=== PATIENT | female | born 1975 | race Caucasian/White ===

== ENCOUNTER → 2016-09-13 | Outpatient (CLI) | payer OTHER, MEDICAID ==
[2016-04-17 11:35] VITALS: BP 129/96
--- NOTE | 2016-09-13 12:30 | RAD ---
HISTORY: Acute abdominal pain Study: Acute abdominal series, lateral chest Comparison: October 30, 2014 Findings: The trachea is midline. The cardiac silhouette is unremarkable. The lungs are clear without focal infiltrate or effusion. The bony thorax is unremarkable. Flat plate and upright evaluation of the abdomen demonstrates a normal bowel gas pattern. No pneumop eritoneum is identified. There is a large amount of stool throughout the colon.. No pathological so ft tissue mass or calcification can be observed. The bony structures are grossly intact. IMPRESSION: 1. No acute cardiopulmonary disease. 2. No evidence for acute abdominal pathology identified. 3. Constipation Reported By:
== END ==
LOC: RAD 11:42
PROVIDERS: ATTEND Nurse Practitioner Family
DX: R10.84 Generalized abdominal pain (principal); R06.02 Shortness of breath; K59.09 Other constipation
CPT/HCPCS: 74022

== ENCOUNTER → 2016-09-16 | Outpatient (CLI) | payer OTHER, MEDICAID ==
[2016-04-17 11:35] VITALS: BP 129/96
[2016-09-16 09:34] LABS: ALANINE AMINOTRANSFERASE 34 Units/L (12-78); ALBUMIN 3.4 g/dL (3.4-5.0); ALKALINE PHOSPHATASE 84 Units/L (46-116); ASPARTATE AMINO TRANSFERASE 33 Units/L (15-37); BLOOD UREA NITROGEN 14 mg/dL (7-18); CALCIUM 8.7 mg/dL (8.5-10.1); CARBON DIOXIDE 29.4 mmol/L (21-32); CHLORIDE 106 mmol/L (98-107); CHOL/HDL RATIO 3.3 (0.0-5.0); CHOLESTEROL 203 mg/dL (0-200); CREATININE 0.98 mg/dL (0.55-1.02); GLUCOSE 86 mg/dL (65-99); HDL CHOLESTEROL 62 mg/dL (40-60); SODIUM 142 mmol/L (136-145); TOTAL PROTEIN 6.8 g/dL (6.4-8.2); TRIGLYCERIDES 53 mg/dL (0-150); eGFR BLACK RACES > 60 (>60); eGFR NON BLACK RACES > 60 (>60)
[2016-09-16 09:50] LABS: BASOPHILS # (AUTO) 0.1 X10^3/uL (0.0-0.1); BASOPHILS % (AUTO) 2.3 % (0.2-1.0); EOSINOPHILS # (AUTO) 0.3 x10^3/uL (0.0-0.2); EOSINOPHILS % (AUTO) 8.5 % (0.9-2.9); HEMATOCRIT 38.3 % (36.0-47.0); HEMOGLOBIN 12.6 g/dL (12.0-16.0); LYMPHOCYTES # (AUTO) 1.4 X10^3/uL (1.3-2.9); LYMPHOCYTES % (AUTO) 47.4 % (21.0-51.0); MEAN CORPUSCULAR VOLUME 90.9 fL (80.0-100.0); MEAN PLATELET VOLUME 8.8 fL (7.4-11.0); MONOCYTES # (AUTO) 0.2 x10^3/uL (0.3-0.8); MONOCYTES % (AUTO) 7.9 % (0.0-13.0); NEUTROPHILS % (AUTO) 33.9 % (42.0-75.0); PLATELET COUNT 148 X10^3/uL (150.0-450.0); RED BLOOD COUNT 4.21 X10^6/uL (3.5-5.4); RED CELL DISTRIBUTION WIDTH 12.9 % (11.6-16.5)
== END ==
LOC: LAB 08:56
PROVIDERS: ATTEND Nurse Practitioner Family
DX: G40.909 Epilepsy, unspecified, not intractable, without status epilepticus (principal); Z91.89 Other specified personal risk factors, not elsewhere classified; R23.2 Flushing; E53.8 Deficiency of other specified B group vitamins; I10 Essential (primary) hypertension
CPT/HCPCS: 36415; 80053; 80061; 82671; 82746; 84144; 85025

== ENCOUNTER 2016-10-06 13:46 | Observation (INO) | payer OTHER, MEDICAID ==
[2016-10-06] MEDS ORDERED: ATIVAN INJ 2 MG VIAL ONE ×2 (13:55→14:47)
[2016-10-06] MEDS ORDERED: ATIVAN INJ 2 MG VIAL IVP ONE ×2 (13:56→15:58)
[2016-10-06] MEDS ORDERED: NS 1000 ML 1,000 ML ONE (13:58)
--- NOTE | 2016-10-06 14:03 | DR.SEIZA ---
HPI - Time Seen Time seen: 13:50 - Complaints Chief Complaint Doctors Comments: EMS was called to the residence of patient who was having a seizure according to caller. Patient with a history of seizure last seizure was hospitalized here for two weeks then transferred to [place]. She reports that she has done well. She is taking vimpat bid for seizure controll. Her sister states that she has done well since [place] but it seams that when she has thoughts of her child she become aggitated and seizures become more frequent. PMH - PMH Past Medical History: Anxiety, Asthma, Depression, Seizures Past Surgical History: Yes Surgical History: Appendectomy, 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, Ectopic , Hysterectomy , Tonsillectomy, Other - Family History Family Medical History: Diabetes Mellitus, Cancer, Heart Failure, Hypertension - Social History Do you use any recreational Drugs:: No ROS - Review of Systems Constitutional: No Symptoms Reported Eyes: No Symptoms Reported ENTM: No Symptoms Reported Respiratoy: No Symptoms Reported Cardiovascular: No Symptoms Reported Gastrointestinal/Abdominal: No Symptoms Reported Genitourinary: No Symptoms Reported Neurological: Seizure Musculoskeletal: No Symptoms Reported Integumentary: No Symptoms Reported Hematologic/Lymphatic: No Symptoms Reported Endocrine: No Symptoms Reported Psychiatric: No Symptoms Reported All Other Systems: Reviewed and Negative PE - Vital Signs Vitals: Temperature 98.9 F Pulse Rate [Right Radial] 105 Pulse Rate 103 Respiratory Rate 20 Blood Pressure [Left Arm] 118/67 Blood Pressure [Right Arm] 134/90 Blood Pressure 129/75 O2 Sat by Pulse Oximetry 98 - General Limitations: No Limitations General Appearance: Alert, In No Apparent Distress - Head Head Exam: Normal Inspection, Atraumatic - Eyes Eye exam: Normal Appearance, PERRL, EOMI Eyelids: Normal Inspection: Bilateral Pupils: Regular, Round: Bilateral Sclera/Conjunctival: Normal Inspection: Bilateral Anterior Chamber: Normal Inspection: Bilateral - ENT ENT Exam: Normal Exam Mouth Exam: Normal Inspection, Drooling - Neck Neck Exam: Normal Inspection, Full ROM - Respiratory Respiratory Exam: Normal Lung Sounds Bilat Respiratory Exam: Bilateral Clear to Auscultation - Cardiovascular Cardiovascular Exam: Regular Rate, Normal Rhythm - Abdominal Exam Abdominal Exam: Normal Inspection Abdominal Tenderness: negative: RUQ, RLQ, LUQ, LLQ, Epigastrium, Suprapubic, Diffuse, Mild, Moderate, Severe, Other - Extremities Extremities Exam: Normal Inspection, Full ROM - Back Back Exam: Normal Inspection, Full ROM - Neurologic Neurological Exam: Alert, Oriented X3, CN II-XII Intact Speech: Fluid Speech Cranial Nerve Exam: EOM Function (II, III, IV, ): Normal, Facial Sensation (V) : Normal, Gag reflex (XI): Normal Motor Strength - LUE: 3/5 Motor Strength - RUE: 3/5 - Psychiatric Psychiatric Exam: Normal Affect, Normal Mood - Skin Skin Exam: Warm, Dry, Intact Course - Treatment Treatment: Had seizure required anticonvulsants IV, lorazepam 6mg, phospheyntoin 1gm - Reevaluation 1st: Improved - Consultation Called: 16:40 (Dr Salgado agreed to admit for further evaluation and treatment) ROR - Labs Reviewed Result Diagrams: 10/06/16 14:05 10/06/16 14:05 Laboratory: WBC 3.2 X10^3/uL (3.6-10.0) L 10/06/16 14:05 RBC 4.14 X10^6/uL (3.5-5.4) 10/06/16 14:05 Hgb 12.9 g/dL (12.0-16.0) 10/06/16 14:05 Hct 37.3 % (36.0-47.0) 10/06/16 14:05 MCV 90.1 fL (80.0-100.0) 10/06/16 14:05 MCH 31.1 pg (27.0-34.0) 10/06/16 14:05 MCHC 34.5 g/dL (33.0-35.0) 10/06/16 14:05 RDW 13.1 % (11.6-16.5) 10/06/16 14:05 Plt Count 155 X10^3/uL (150.0-450.0) 10/06/16 14:05 MPV 8.9 fL (7.4-11.0) 10/06/16 14:05 Neut % 55.8 % (42.0-75.0) 10/06/16 14:05 Lymph % 29.9 % (21.0-51.0) 10/06/16 14:05 Simpson % 7.4 % (0.0-13.0) 10/06/16 14:05 Eos % 5.0 % (0.9-2.9) H 10/06/16 14:05 Baso % 1.9 % (0.2-1.0) H 10/06/16 14:05 Neut # 1.8 x10^3/uL (2.2-4.8) L 10/06/16 14:05 Lymph # 0.9 X10^3/uL (1.3-2.9) L 10/06/16 14:05 Simpson # 0.2 x10^3/uL (0.3-0.8) L 10/06/16 14:05 Eos # 0.2 x10^3/uL (0.0-0.2) 10/06/16 14:05 Baso # 0.1 X10^3/uL (0.0-0.1) 10/06/16 14:05 Absolute Nucleated RBC 0.1 /100WBC 10/06/16 14:05 Sodium 140 mmol/L (136-145) 10/06/16 14:05 Corrected Sodium 141 mmol/L (136-145) 10/06/16 14:05 Potassium 3.6 mmol/L (3.5-5.1) 10/06/16 14:05 Chloride 104 mmol/L (98-107) 10/06/16 14:05 Carbon Dioxide 26.1 mmol/L (21-32) 10/06/16 14:05 BUN 9 mg/dL (7-18) 10/06/16 14:05 Creatinine 0.92 mg/dL (0.55-1.02) 10/06/16 14:05 Est GFR (MDRD) Af Amer > 60 (>60) 10/06/16 14:05 Est GFR (MDRD) Non-Af > 60 (>60) 10/06/16 14:05 Glucose 145 mg/dL (65-99) H 10/06/16 14:05 Calcium 8.7 mg/dL (8.5-10.1) 10/06/16 14:05 Corrected Calcium TNP 10/06/16 14:05 Total Bilirubin 0.40 mg/dL (0.2-1.0) 10/06/16 14:05 AST 19 Units/L (15-37) 10/06/16 14:05 ALT 23 Units/L (12-78) 10/06/16 14:05 Alkaline Phosphatase 81 Units/L (46-116) 10/06/16 14:05 Creatine Kinase 60 Units/L (26-192) 10/06/16 14:39 CK-MB (CK-2) < 1.0 ng/mL (0-4.0) 10/06/16 14:39 CK/CKMB % Calc 1.7 % (<4) 10/06/16 14:39 Troponin I < 0.02 ng/mL (0-1.5) 10/06/16 14:39 Total Protein 6.9 g/dL (6.4-8.2) 10/06/16 14:05 Albumin 3.5 g/dL (3.4-5.0) 10/06/16 14:05 Globulin 3.4 g/dL (2.5-4.5) 10/06/16 14:05 Albumin/Globulin Ratio 1.0 Ratio (1.1-2.1) L 10/06/16 14:05 Specimen Type Clean catch urine 10/06/16 14:49 Urine Color Yellow (YELLOW) 10/06/16 14:49 Urine Appearance Clear (CLEAR) 10/06/16 14:49 Urine pH 6.0 (5.0 - 8.0) 10/06/16 14:49 Ur Specific [place] 1.005 (1.000-1.030) 10/06/16 14:49 Urine Protein Negative (NEGATIVE) 10/06/16 14:49 Urine Glucose (UA) Negative (NEGATIVE) 10/06/16 14:49 Urine Ketones Negative (NEGATIVE) 10/06/16 14:49 Urine Occult Blood Negative (NEGATIVE) 10/06/16 14:49 Urine Nitrite Negative (NEGATIVE) 10/06/16 14:49 Urine Bilirubin Negative (NEGATIVE) 10/06/16 14:49 Urine Urobilinogen Normal (NORMAL) 10/06/16 14:49 Ur Leukocyte Esterase Negative (NEGATIVE) 10/06/16 14:49 Urine RBC Rare /HPF (NEGATIVE) 10/06/16 14:49 Urine WBC None seen /HPF (NEGATIVE) 10/06/16 14:49 Ur Squamous Epith Cells Few /HPF (NEGATIVE) 10/06/16 14:49 Urine Bacteria Negative /HPF (NEGATIVE) 10/06/16 14:49 Urine Mucus Moderate /HPF (NEGATIVE) 10/06/16 14:49 Ur Culture Indicated? No/not indicated 10/06/16 14:49 - XRAY XRAY Interpreted by: Radiologist (Chest: No acute cardiopulmonary disease) Procedures - Procedure Comments Procedures: Anticonvulsants - Diagnosis Discharge Problem: Seizure disorder - Discharge Plan Condition: Stable - Follow ups/Referrals Follow ups/Referrals: AMBROCIO LAMBERT [Primary Care Provider] - 3 days - Instructions
[2016-10-06] MEDS: NS 1000 ML 1,000 ML IV SCH ×2 (14:06→21:31)
--- NOTE | 2016-10-06 14:18 | RAD ---
HISTORY: 41-year-old female status post seizure. Study: Single frontal view of the chest. Comparison: Chest radiographs September 13, 2016. Findings: The trachea is midline. The cardiac silhouette is unremarkable. No focal consolidation, effusion o r pneumothorax. The bony thorax is unremarkable. IMPRESSION: 1. No acute cardiopulmonary disease. Reported By:
[2016-10-06 14:20] LABS: BASOPHILS # (AUTO) 0.1 X10^3/uL (0.0-0.1); BASOPHILS % (AUTO) 1.9 % (0.2-1.0); EOSINOPHILS # (AUTO) 0.2 x10^3/uL (0.0-0.2); HEMATOCRIT 37.3 % (36.0-47.0); HEMOGLOBIN 12.9 g/dL (12.0-16.0); LYMPHOCYTES # (AUTO) 0.9 X10^3/uL (1.3-2.9); LYMPHOCYTES % (AUTO) 29.9 % (21.0-51.0); MEAN CORPUSCULAR HEMOGLOBIN 31.1 pg (27.0-34.0); MEAN CORPUSCULAR HGB CONC 34.5 g/dL (33.0-35.0); MEAN CORPUSCULAR VOLUME 90.1 fL (80.0-100.0); MEAN PLATELET VOLUME 8.9 fL (7.4-11.0); MONOCYTES # (AUTO) 0.2 x10^3/uL (0.3-0.8); MONOCYTES % (AUTO) 7.4 % (0.0-13.0); NEUTROPHILS # (AUTO) 1.8 x10^3/uL (2.2-4.8); NEUTROPHILS % (AUTO) 55.8 % (42.0-75.0); PLATELET COUNT 155 X10^3/uL (150.0-450.0); RED BLOOD COUNT 4.14 X10^6/uL (3.5-5.4); RED CELL DISTRIBUTION WIDTH 13.1 % (11.6-16.5); WHITE BLOOD COUNT 3.2 X10^3/uL (3.6-10.0)
[2016-10-06 14:26] LABS: ALANINE AMINOTRANSFERASE 23 Units/L (12-78); ALBUMIN 3.5 g/dL (3.4-5.0); ALKALINE PHOSPHATASE 81 Units/L (46-116); ASPARTATE AMINO TRANSFERASE 19 Units/L (15-37); BLOOD UREA NITROGEN 9 mg/dL (7-18); CALCIUM 8.7 mg/dL (8.5-10.1); CARBON DIOXIDE 26.1 mmol/L (21-32); CHLORIDE 104 mmol/L (98-107); COR NA(FOR HYPERGLY) 141 mmol/L (136-145); CREATININE 0.92 mg/dL (0.55-1.02); GLUCOSE 145 mg/dL (65-99); SODIUM 140 mmol/L (136-145); TOTAL PROTEIN 6.9 g/dL (6.4-8.2); eGFR BLACK RACES > 60 (>60); eGFR NON BLACK RACES > 60 (>60)
[2016-10-06] MEDS ORDERED: ATIVAN INJ 2 MG VIAL IVP STA (14:30)
[2016-10-06] MEDS ORDERED: DILANTIN INJ 100 MG VIAL IVP ONE (14:31)
[2016-10-06 14:58] LABS: BILIRUBIN,URINE NEGATIVE (NEGATIVE); BLOOD/HEMOGLOBIN,URINE NEGATIVE (NEGATIVE); GLUCOSE, URINE NEGATIVE (NEGATIVE); KETONES,URINE NEGATIVE (NEGATIVE); LEUKOCYTE ESTERASE ,URINE NEGATIVE (NEGATIVE); NITRITES,URINE NEGATIVE (NEGATIVE); PROTEIN,URINE NEGATIVE (NEGATIVE); UROBILINOGEN,URINE NORMAL (NORMAL)
[2016-10-06 15:02] LABS: APPEARANCE,URINE CLEAR (CLEAR); COLOR,URINE YELLOW (YELLOW)
[2016-10-06 15:07] LABS: CKMB % 1.7 % (<4); CREATINE KINASE 60 Units/L (26-192); CREATINE KINASE MB < 1.0 ng/mL (0-4.0); TROPONIN I < 0.02 ng/mL (0-1.5)
[2016-10-06 15:17] LABS: RBC,URINE RARE /HPF (NEGATIVE); SQUAMOUS EPITHELIAL CELL,UR FEW /HPF (NEGATIVE)
[2016-10-06 15:18] LABS: BACTERIA,URINE NEGATIVE /HPF (NEGATIVE); MUCUS,URINE MODERATE /HPF (NEGATIVE)
[2016-10-06] MEDS ORDERED: PHENERGAN INJ 25 MG IV ONE (17:16)
[2016-10-06] MEDS ORDERED: NS 1000 ML 1,000 ML IV SCH (18:00)
[2016-10-06] MEDS ORDERED: XANAX PO SCH (21:00)
[2016-10-06] MEDS ORDERED: LACOSAMIDE 150 MG PO SCH (21:00)
[2016-10-06] MEDS: PEPCID TAB 20 MG PO SCH (21:32)
[2016-10-06 22:01] VITALS: BMI 28.4
[2016-10-07 05:24] LABS: BASOPHILS # (AUTO) 0.1 X10^3/uL (0.0-0.1); EOSINOPHILS # (AUTO) 0.2 x10^3/uL (0.0-0.2); EOSINOPHILS % (AUTO) 5.7 % (0.9-2.9); HEMATOCRIT 34.5 % (36.0-47.0); HEMOGLOBIN 11.8 g/dL (12.0-16.0); LYMPHOCYTES # (AUTO) 1.7 X10^3/uL (1.3-2.9); LYMPHOCYTES % (AUTO) 48.6 % (21.0-51.0); MEAN CORPUSCULAR HGB CONC 34.1 g/dL (33.0-35.0); MEAN CORPUSCULAR VOLUME 90.9 fL (80.0-100.0); MEAN PLATELET VOLUME 9.6 fL (7.4-11.0); MONOCYTES # (AUTO) 0.4 x10^3/uL (0.3-0.8); MONOCYTES % (AUTO) 10.7 % (0.0-13.0); NEUTROPHILS # (AUTO) 1.2 x10^3/uL (2.2-4.8); PLATELET COUNT 152 X10^3/uL (150.0-450.0); RED CELL DISTRIBUTION WIDTH 13.3 % (11.6-16.5); WHITE BLOOD COUNT 3.6 X10^3/uL (3.6-10.0)
[2016-10-07 05:41] LABS: ALANINE AMINOTRANSFERASE 22 Units/L (12-78); ALKALINE PHOSPHATASE 68 Units/L (46-116); ASPARTATE AMINO TRANSFERASE 17 Units/L (15-37); BLOOD UREA NITROGEN 7 mg/dL (7-18); CALCIUM 8.6 mg/dL (8.5-10.1); CARBON DIOXIDE 27.5 mmol/L (21-32); CHLORIDE 110 mmol/L (98-107); COR CA(FOR HYPOALB) 9.4 mg/dL (8.5-10.1); CREATININE 0.74 mg/dL (0.55-1.02); GLUCOSE 84 mg/dL (65-99); SODIUM 143 mmol/L (136-145); eGFR BLACK RACES > 60 (>60); eGFR NON BLACK RACES > 60 (>60)
[2016-10-07] MEDS: NS 1000 ML 1,000 ML IV SCH (05:47)
[2016-10-07] MEDS: PEPCID TAB 20 MG PO SCH (08:35)
[2016-10-07] MEDS ORDERED: FOLIC ACID TAB 1 MG PO SCH (09:00)
[2016-10-07] MEDS ORDERED: LACOSAMIDE PO SCH ×2 (09:00→11:00)
[2016-10-07] MEDS ORDERED: CELEXA PO SCH ×2 (09:00→11:00)
[2016-10-07] MEDS ORDERED: PATIENT'S HOME MEDICATION PO SCH (09:30)
[2016-10-07] MEDS ORDERED: CLARITIN PO SCH (11:00)
[2016-10-07 12:26] LABS: CREATINE KINASE 65 Units/L (26-192); CREATINE KINASE MB < 1.0 ng/mL (0-4.0); TROPONIN I < 0.02 ng/mL (0-1.5)
[2016-10-07 12:41] VITALS: BP 116/82
[2016-10-07 12:54] LABS: CKMB % 1.5 % (<4)
== END 2016-10-07 15:00 | disposition home or self-care (01) ==
LOC: ER 13:46 → ICU 17:06 → INTOOBSV 17:06
PROVIDERS: ADMIT Internal Medicine; ATTEND Internal Medicine
DX: G40.802 Other epilepsy, not intractable, without status epilepticus (principal); F41.8 Other specified anxiety disorders; Z79.899 Other long term (current) drug therapy; D72.818 Other decreased white blood cell count; R73.09 Other abnormal glucose
CPT/HCPCS: 36415; 71010; 80053; 81001; 82550; 82553; 84484; 85025; 93005; 93010; 96365; 96374; 96375; 99284; A4216; G0378; J2060

== ENCOUNTER 2016-10-10 14:47 | Emergency (ER) | payer OTHER, MEDICAID ==
[2016-10-10 14:58] VITALS: BMI 27.4
--- NOTE | 2016-10-10 15:03 | DR.SEIZA ---
HPI - Time Seen Time seen: 14:55 - Primary Care Physician Primary Care Physician: KATHY GAEE - Complaints Chief Complaint Doctors Comments: No seizure activity on arrival. Chief Complaint:: EMS CALLED OUT TO PT HAVING SEIZURE ACTIVITY .. EMS STATES PT WITNESSED HAVING SEIZURE LIKE ACTIVITY NOT LASTING LONG AND PT WAS ALERT RIGHT AFTER THE ACTIVITY .. PT NOT POSTICAL .. Self Treatment fo Chief Complaint: PT STATES " I HAVE HAD A OLEARY FOR THE PAST 3 DAYS ". - Reviewed Nurses Notes Reviewed: Yes - Source History Provided: Patient, EMS - Mode of Arrival Mode of Arrival: EMS - Timing Onset of Chief Complaint: 10/10/16 - Duration Duration: Minutes - Quality Quality: Grand mal - Location Location: Generalized - Context Prior to Seizure:: Normal During Seizure: LOC Immediately After Seizure: Normal Mentation (emS REPORTS ALERT RIGHT AFTER SEIZURE) History of:: Seizure Disorder - Associated Signs and Symptoms Associated Signs and Symptoms:: Headache PMH - PMH Past Medical History: Yes Past Medical History: Anxiety, Asthma, Depression, Seizures (CALLED SAID SHE MAY NEED ATIVAN OR VERSED DRIP.) Past Surgical History: Yes Surgical History: Appendectomy, 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, 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, Hysterectomy, Tonsillectomy - Family History History of Family Medical Conditions: Yes Family Medical History: Diabetes Mellitus, Cancer, Heart Failure, Hypertension - Social History Does patient currently use any type of tobacco product: No Have you used tobacco products in the last 12 months: No Type of Tobacco Use: None Does any household member use tobacco: No Do you use any recreational Drugs:: No Lives With: Family Lives Where: Home - infectious screening In the last 2 months have you had wt loss of >10#?: NO Have you had fever, night sweats or hemotysis?: No Have you traveled outside the country in the last 6 months?: No Isolation: Standard ROS - Review of Systems Constitutional: No Symptoms Reported Eyes: No Symptoms Reported ENTM: No Symptoms Reported Respiratoy: No Symptoms Reported Cardiovascular: No Symptoms Reported Gastrointestinal/Abdominal: No Symptoms Reported Genitourinary: No Symptoms Reported Neurological: Seizure (POSSIBLE PSEUDOSEIZURES) Musculoskeletal: No Symptoms Reported Integumentary: No Symptoms Reported Hematologic/Lymphatic: No Symptoms Reported Endocrine: No Symptoms Reported Psychiatric: Depression All Other Systems: Reviewed and Negative PE - Vital Signs Vitals: Temperature 98.6 F Pulse Rate 67 Respiratory Rate 22 Blood Pressure [Left Arm] 118/67 Blood Pressure [Right Arm] 116/82 Blood Pressure 157/87 O2 Sat by Pulse Oximetry 100 - General Limitations: No Limitations General Appearance: Alert, In No Apparent Distress - Head Head Exam: Normal Inspection - Eyes Eye exam: Normal Appearance, EOMI. negative: Scleral Icterus, Conjunctival Injection Eyelids: Normal Inspection: Bilateral Pupils: Regular, Round: Bilateral Sclera/Conjunctival: Normal Inspection: Bilateral - ENT ENT Exam: Normal Exam Mouth Exam: Normal Inspection - Neck Neck Exam: Normal Inspection, Full ROM, Trachea Midline - Chest Chest Inspection: Normal Inspection - Respiratory Respiratory Exam: Normal Lung Sounds Bilat. negative: Accessory Muscle Use, Respiratory Distress Respiratory Exam: Bilateral Clear to Auscultation - Cardiovascular Cardiovascular Exam: Regular Rate - Back Back Exam: Normal Inspection - Neurologic Neurological Exam: Alert, Oriented X3, CN II-XII Intact Patient Oriented To: Person, Place, Time Speech: Fluid Speech Cranial Nerve Exam: EOM Function (II, III, IV, ): Normal, Facial Sensation (V) : Normal, Facial Palsy (VII): Normal, Gag reflex (XI): Normal, Spinal Accessory Function (XI): Normal, Tongue Deviation: Normal - Psychiatric Psychiatric Exam: Anxious - Skin Skin Exam: Intact, Normal Color Course - Consultation Called: 15:40 Call Returned: 15:41 Consultation Comments: discussed with Dr. Ely recommended versed drip for status or frequent seizures. Otherwise ativan prn. ROR - Labs Reviewed Result Diagrams: 10/10/16 15:19 10/10/16 15:19 Laboratory: WBC 3.5 X10^3/uL (3.6-10.0) L 10/10/16 15:19 RBC 4.14 X10^6/uL (3.5-5.4) 10/10/16 15:19 Hgb 12.7 g/dL (12.0-16.0) 10/10/16 15:19 Hct 37.4 % (36.0-47.0) 10/10/16 15:19 MCV 90.3 fL (80.0-100.0) 10/10/16 15:19 MCH 30.6 pg (27.0-34.0) 10/10/16 15:19 MCHC 34.0 g/dL (33.0-35.0) 10/10/16 15:19 RDW 13.4 % (11.6-16.5) 10/10/16 15:19 Plt Count 157 X10^3/uL (150.0-450.0) 10/10/16 15:19 MPV 8.7 fL (7.4-11.0) 10/10/16 15:19 Neut % 43.7 % (42.0-75.0) 10/10/16 15:19 Lymph % 40.2 % (21.0-51.0) 10/10/16 15:19 [place] % 8.6 % (0.0-13.0) 10/10/16 15:19 Eos % 6.2 % (0.9-2.9) H 10/10/16 15:19 Baso % 1.3 % (0.2-1.0) H 10/10/16 15:19 Neut # 1.5 x10^3/uL (2.2-4.8) L 10/10/16 15:19 Lymph # 1.4 X10^3/uL (1.3-2.9) 10/10/16 15:19 [place] # 0.3 x10^3/uL (0.3-0.8) 10/10/16 15:19 Eos # 0.2 x10^3/uL (0.0-0.2) 10/10/16 15:19 Baso # 0.0 X10^3/uL (0.0-0.1) 10/10/16 15:19 Absolute Nucleated RBC 0.0 /100WBC 10/10/16 15:19 Sodium 142 mmol/L (136-145) 10/10/16 15:19 Corrected Sodium TNP 10/10/16 15:19 Potassium 4.0 mmol/L (3.5-5.1) 10/10/16 15:19 Chloride 106 mmol/L (98-107) 10/10/16 15:19 Carbon Dioxide 27.4 mmol/L (21-32) 10/10/16 15:19 BUN 8 mg/dL (7-18) 10/10/16 15:19 Creatinine 0.95 mg/dL (0.55-1.02) 10/10/16 15:19 Est GFR (MDRD) Af Amer > 60 (>60) 10/10/16 15:19 Est GFR (MDRD) Non-Af > 60 (>60) 10/10/16 15:19 Glucose 100 mg/dL (65-99) H 10/10/16 15:19 Calcium 8.8 mg/dL (8.5-10.1) 10/10/16 15:19 Specimen Type Clean catch urine 10/10/16 15:24 Urine Color Dark yellow (YELLOW) 10/10/16 15:24 Urine Appearance Clear (CLEAR) 10/10/16 15:24 Urine pH 7.0 (5.0 - 8.0) 10/10/16 15:24 Ur Specific [place] 1.015 (1.000-1.030) 10/10/16 15:24 Urine Protein Negative (NEGATIVE) 10/10/16 15:24 Urine Glucose (UA) Negative (NEGATIVE) 10/10/16 15:24 Urine Ketones Negative (NEGATIVE) 10/10/16 15:24 Urine Occult Blood Negative (NEGATIVE) 10/10/16 15:24 Urine Nitrite Negative (NEGATIVE) 10/10/16 15:24 Urine Bilirubin Negative (NEGATIVE) 10/10/16 15:24 Urine Urobilinogen Normal (NORMAL) 10/10/16 15:24 Ur Leukocyte Esterase Negative (NEGATIVE) 10/10/16 15:24 Urine RBC 0-2 /HPF (NEGATIVE) 10/10/16 15:24 Urine WBC None seen /HPF (NEGATIVE) 10/10/16 15:24 Ur Squamous Epith Cells Rare /HPF (NEGATIVE) 10/10/16 15:24 Amorphous Sediment Trace /HPF (NEGATIVE) 10/10/16 15:24 Urine Bacteria Trace /HPF (NEGATIVE) 10/10/16 15:24 Ur Culture Indicated? No/not indicated 10/10/16 15:24 Urine Opiates Screen Negative (NEG=<300) 10/10/16 15:24 Urine Methadone Screen Negative (NEG=<300) 10/10/16 15:24 Ur Barbiturates Screen Negative (NEG=<200) 10/10/16 15:24 Ur Phencyclidine Scrn Negative (NEG=<25) 10/10/16 15:24 Ur Amphetamines Screen Negative (NEG=<1000) 10/10/16 15:24 U Benzodiazepines Scrn Positive (NEG=<200) A 06/20/17 15:24 Urine Cocaine Screen Negative (NEG=<300) 10/10/16 15:24 U Marijuana (THC) Screen Negative (NEG=<50) 10/10/16 15:24 - Diagnosis Discharge Problem: Seizures - Discharge Plan Condition: Stable Prescriptions: Lorazepam [Ativan 2 mg] 2 mg PO HS #3 tab - Follow ups/Referrals Follow ups/Referrals: NFD,None [Primary Care Provider] - 3 days - Instructions
[2016-10-10 15:26] LABS: BASOPHILS % (AUTO) 1.3 % (0.2-1.0); EOSINOPHILS # (AUTO) 0.2 x10^3/uL (0.0-0.2); EOSINOPHILS % (AUTO) 6.2 % (0.9-2.9); HEMATOCRIT 37.4 % (36.0-47.0); HEMOGLOBIN 12.7 g/dL (12.0-16.0); LYMPHOCYTES # (AUTO) 1.4 X10^3/uL (1.3-2.9); LYMPHOCYTES % (AUTO) 40.2 % (21.0-51.0); MEAN CORPUSCULAR HEMOGLOBIN 30.6 pg (27.0-34.0); MEAN CORPUSCULAR VOLUME 90.3 fL (80.0-100.0); MEAN PLATELET VOLUME 8.7 fL (7.4-11.0); MONOCYTES # (AUTO) 0.3 x10^3/uL (0.3-0.8); MONOCYTES % (AUTO) 8.6 % (0.0-13.0); NEUTROPHILS # (AUTO) 1.5 x10^3/uL (2.2-4.8); NEUTROPHILS % (AUTO) 43.7 % (42.0-75.0); PLATELET COUNT 157 X10^3/uL (150.0-450.0); RED BLOOD COUNT 4.14 X10^6/uL (3.5-5.4); RED CELL DISTRIBUTION WIDTH 13.4 % (11.6-16.5); WHITE BLOOD COUNT 3.5 X10^3/uL (3.6-10.0)
[2016-10-10 15:32] LABS: BLOOD UREA NITROGEN 8 mg/dL (7-18); CALCIUM 8.8 mg/dL (8.5-10.1); CARBON DIOXIDE 27.4 mmol/L (21-32); CHLORIDE 106 mmol/L (98-107); CREATININE 0.95 mg/dL (0.55-1.02); GLUCOSE 100 mg/dL (65-99); SODIUM 142 mmol/L (136-145); eGFR BLACK RACES > 60 (>60); eGFR NON BLACK RACES > 60 (>60)
[2016-10-10 15:43] LABS: BILIRUBIN,URINE NEGATIVE (NEGATIVE); BLOOD/HEMOGLOBIN,URINE NEGATIVE (NEGATIVE); GLUCOSE, URINE NEGATIVE (NEGATIVE); KETONES,URINE NEGATIVE (NEGATIVE); LEUKOCYTE ESTERASE ,URINE NEGATIVE (NEGATIVE); NITRITES,URINE NEGATIVE (NEGATIVE); PROTEIN,URINE NEGATIVE (NEGATIVE); UROBILINOGEN,URINE NORMAL (NORMAL)
[2016-10-10 15:52] LABS: AMORPHOUS SEDIMENT,UR TRACE /HPF (NEGATIVE); APPEARANCE,URINE CLEAR (CLEAR); BACTERIA,URINE TRACE /HPF (NEGATIVE); COLOR,URINE DARK YELLOW (YELLOW); RBC,URINE 0-2 /HPF (NEGATIVE); SQUAMOUS EPITHELIAL CELL,UR RARE /HPF (NEGATIVE)
[2016-10-10 16:03] VITALS: BP 150/92
== END 2016-10-10 16:56 | disposition home or self-care (01) ==
LOC: ER 14:47
DX: R56.9 Unspecified convulsions (principal)
CPT/HCPCS: 36415; 80048; 80307; 81001; 85025; 96365; 99282; 99283; G0434

== ENCOUNTER 2016-10-11 17:31 | Emergency (ER) | payer OTHER, MEDICAID ==
[2016-10-11 17:54] VITALS: BP 150/81; BMI 29.2
--- NOTE | 2016-10-11 18:43 | DR.LAC ---
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, Tonsillectomy - Family History History of Family Medical Conditions: Yes Family Medical History: Diabetes Mellitus, Cancer, Heart Failure, Hypertension - Social History Does patient currently use any type of tobacco product: No Have you used tobacco products in the last 12 months: No Type of Tobacco Use: None Does any household member use tobacco: No Alcohol Use: None Do you use any recreational Drugs:: No Lives With: Family Lives Where: Home - infectious screening In the last 2 months have you had wt loss of >10#?: NO Have you had fever, night sweats or hemotysis?: No Have you traveled outside the country in the last 6 months?: No Isolation: Standard PE - Vital Signs Vitals: Temperature 98.8 F Pulse Rate 93 Respiratory Rate 20 Blood Pressure [Left Arm] 118/67 Blood Pressure [Right Arm] 150/92 Blood Pressure 150/81 O2 Sat by Pulse Oximetry 99 - Discharge Plan Condition: Stable - Follow ups/Referrals Follow ups/Referrals: LAZARA,Renée [Primary Care Provider] - 3 days - Instructions
[2016-10-11] MEDS ORDERED: ZOFRAN INJ 4 MG VIAL 16 MG, ATIVAN INJ 2 MG VIAL 1 MG, DECADRON INJ 10 MG in NS 50 ML I... IV ONE (18:46)
[2016-10-11] MEDS ORDERED: DILANTIN INJ 100 MG VIAL IVP ONE (18:57)
[2016-10-11] MEDS ORDERED: ATIVAN INJ 2 MG VIAL IVP ONE ×2 (18:57→20:07)
[2016-10-11] MEDS ORDERED: ATIVAN INJ 2 MG VIAL ONE ×2 (19:06→20:09)
[2016-10-11] MEDS ORDERED: CEREBYX INJ IVP ONE (19:18)
[2016-10-11] MEDS ORDERED: NS 100 ML IV 100 ML IV ONE (19:19)
[2016-10-11] MEDS ORDERED: CEREBYX INJ ONE (19:19)
[2016-10-11] MEDS ORDERED: NS 500 ML IV 500 ML IV ONE (19:21)
== END 2016-10-11 20:34 | disposition home or self-care (01) ==
LOC: ER 17:31
DX: R56.9 Unspecified convulsions (principal)
CPT/HCPCS: 93041; 96365; 96374; 96375; 99283; A4222; S0078; J2060

== ENCOUNTER 2016-10-12 12:26 | Observation (INO) | payer OTHER, MEDICAID ==
[2016-10-12] MEDS ORDERED: ATIVAN INJ 2 MG VIAL IVP PRN (12:30)
[2016-10-12 12:45] VITALS: BMI 29.2
[2016-10-12] MEDS ORDERED: XANAX PO PRN (12:56)
[2016-10-12 13:09] LABS: BASOPHILS # (AUTO) 0.1 X10^3/uL (0.0-0.1); BASOPHILS % (AUTO) 1.8 % (0.2-1.0); EOSINOPHILS # (AUTO) 0.2 x10^3/uL (0.0-0.2); EOSINOPHILS % (AUTO) 5.5 % (0.9-2.9); HEMATOCRIT 34.6 % (36.0-47.0); HEMOGLOBIN 11.8 g/dL (12.0-16.0); LYMPHOCYTES # (AUTO) 1.1 X10^3/uL (1.3-2.9); LYMPHOCYTES % (AUTO) 38.6 % (21.0-51.0); MEAN CORPUSCULAR HEMOGLOBIN 30.7 pg (27.0-34.0); MEAN CORPUSCULAR VOLUME 90.3 fL (80.0-100.0); MEAN PLATELET VOLUME 8.6 fL (7.4-11.0); MONOCYTES # (AUTO) 0.2 x10^3/uL (0.3-0.8); MONOCYTES % (AUTO) 7.3 % (0.0-13.0); NEUTROPHILS # (AUTO) 1.3 x10^3/uL (2.2-4.8); NEUTROPHILS % (AUTO) 46.8 % (42.0-75.0); PLATELET COUNT 137 X10^3/uL (150.0-450.0); RED BLOOD COUNT 3.83 X10^6/uL (3.5-5.4); RED CELL DISTRIBUTION WIDTH 13.8 % (11.6-16.5); WHITE BLOOD COUNT 2.8 X10^3/uL (3.6-10.0)
[2016-10-12] MEDS: NS 1000 ML 1,000 ML IV SCH (13:15)
[2016-10-12 13:20] LABS: ALANINE AMINOTRANSFERASE 27 Units/L (12-78); ALBUMIN 3.4 g/dL (3.4-5.0); ALKALINE PHOSPHATASE 73 Units/L (46-116); ASPARTATE AMINO TRANSFERASE 20 Units/L (15-37); BLOOD UREA NITROGEN 11 mg/dL (7-18); CARBON DIOXIDE 27.2 mmol/L (21-32); CHLORIDE 106 mmol/L (98-107); CREATININE 0.85 mg/dL (0.55-1.02); GLUCOSE 87 mg/dL (65-99); MAGNESIUM 1.8 mg/dL (1.7-2.9); SODIUM 141 mmol/L (136-145); TOTAL PROTEIN 6.5 g/dL (6.4-8.2); eGFR BLACK RACES > 60 (>60); eGFR NON BLACK RACES > 60 (>60)
--- NOTE | 2016-10-12 19:47 | DR.H&P ---
H&P - History & Physical for Day of: H&P Date: 10/12/16 - Chief Complaint Chief Complaint: Breakthrough seizures - Allergies Allergies/Adverse Reactions: Allergies Allergy/AdvReac Type Severity Reaction Status Date / Time MS Bakerazine Allergy Verified 10/10/16 14:53 [From Phenergan] - History of Present Illness History of Present Illness: 41-year-old female patient was seen and examined because of history of seizure disorder. Patient has been having increased breakthrough seizures in the past 7-10 days. Up until now her seizures were under good control. In March 2016 she was referred to medical [facility] in [place] because of uncontrolled seizures. Her medications were adjusted better. She was placed on Vimpat. This helped her seizure significantly. In the recent times has not been sleeping well. She is up late in the night. She watches too much TV and plays with her smart phones. It appears that she has been stressed out recently. These could be precipitating her seizures. There is no history of ongoing attentive flulike illness, fever, dehydration. Her seizures are generalized tonic-clonic seizures. These have been associated with tongue biting and incontinence of bladder. Postictally she is confused and tired. 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, Hysterectomy, Tonsillectomy Additional Surgical History: Bladder Tack, Adenoids Removed, Left Ear Reconstructive Surgery - Family History Family Medical History: Diabetes Mellitus, Cancer, Heart Failure, Hypertension - Social History Does any household member use tobacco: Yes Alcohol Use: None Drug Use: None - Medications Home Medications: Albuterol Sulfate [Proair Hfa] 2 puff INH Q4-6H PRN 10/12/16 [History Confirmed 10/12/16] Alprazolam [XANAX 0.5 MG *] 1 mg PO HS PRN 10/12/16 [History Confirmed 10/12/16] Gabapentin 1 cap PO HS 10/12/16 [History Confirmed 10/12/16] Lorazepam [Ativan 2 mg] 1 mg PO PRN PRN 10/12/16 [History Confirmed 10/12/16] Omeprazole [PRILOSEC 20 MG *] 1 cap PO DAILY 10/12/16 [History Confirmed ] - Review of Systems Constitutional: No Symptoms Reported Eyes: No Symptoms Reported ENT: No Symptoms Reported Respiratory: No Symptoms Reported Cardiovascular: No Symptoms Reported Gastrointestinal: No Symptoms Reported Musculoskeletal: No Symptoms Reported Skin: No Symptoms Reported Neurological: See HPI - Physical Exam Vital Signs: Temperature 98.3 F Pulse Rate [Right Brachial] 81 Respiratory Rate 19 Blood Pressure [Left Arm] 118/67 Blood Pressure [Right Arm] 119/67 Blood Pressure 150/81 O2 Sat by Pulse Oximetry 98 Oriented: Normal Eyes: Normal Ear: Normal Nose: Normal Throat: Normal Respiratory: Clear Throughout Cardiovascular: Normal : Normal Auscultation: Bowel Sounds: Normal Palpation: Normal Tenderness: Normal Skin: Normal Musculoskeletal: Normal Psychiatric: Normal, Other (Neurological examination:patient is awake alert oriented in time place and person. She is slightly slowed down from psychomotor point of view. Her speech is fluent, naming is intact. Her comprehension is intact. Cranial nerve examination: second cranial nerve visual padgett are intact on confrontation. Third fourth and sixth cranial nerve : extraocularmovements are full without any nystagmus. Pupils are 4 mm in size around equal and reactive to light. Fifth cranial nerve: facial sensations are intact bilaterally. Seventh cranial nerve: facial symmetry is intact bilaterally.eighth cranial nerve: hearing is intact bilaterally. 9th 10th cranial nerve:palate is symmetrical bilaterally. 11th cranial nerve: shoulder shrug is equal and symmetrical. Coordination: finger to nose rapid alternating movements are intact. Gait was not tested. Motor system examination: bone is not mobile. Strength is 5 over 5 in upper and lower extremities distally as well as proximally. Deep tendon reflexes are +1 equal and symmetrical in upper and lower extremities. Plantars are downgoing bilaterally. Sensory system examination: patient has no deficits.) Mood Description: Calm Affect: Normal - Assessment/Plan (1) Seizures Status: Acute Additional Notes Additional Notes: 41-year-old female patient was seen and examined by neurology because of breakthrough seizures as described in H&P. Patient has been having increased seizure very likely reciprocated by sleep deprivation, watching too much television and playing on smart phones. These factors could have contributed to her increased frequency of seizures recently. She is well known to our services. Patient had a seizure lee she was in ICU. Her neurological examination is stable. Patient was relatively seizure free from March up until 7-10 days ago. At this point I am recommending Ativan 1-2 mg every 4-6 hourly as needed. I'm recommending EEG, lab work which will include CBC, complete metabolic profile, magnesium levels. We will follow-up.
[2016-10-12] MEDS: NEURONTIN CAP 100 MG PO SCH (20:07)
[2016-10-12] MEDS: PEPCID TAB 20 MG PO SCH (20:07)
[2016-10-12] MEDS: PATIENT'S HOME MEDICATION PO SCH (20:08)
[2016-10-13] MEDS: NS 1000 ML 1,000 ML IV SCH ×4 (03:00→20:46)
[2016-10-13] MEDS: ATIVAN INJ 2 MG VIAL IVP PRN ×2 (07:49→18:50)
[2016-10-13] MEDS: PriLOSEC PO SCH (08:17)
[2016-10-13] MEDS: PEPCID TAB 20 MG PO SCH ×2 (08:17→20:44)
[2016-10-13] MEDS: PATIENT'S HOME MEDICATION PO SCH ×2 (08:17→20:45)
[2016-10-13] MEDS: FOLIC ACID TAB 1 MG PO SCH (08:18)
[2016-10-13] MEDS: CELEXA PO SCH (08:18)
[2016-10-13] MEDS: CLARITIN PO SCH (08:18)
--- NOTE | 2016-10-13 18:34 | PCM.PROG ---
Progress Note - Progress Note for Day of Date: 10/13/16 - Subjective Subjective: Patient was seen and examined today as a follow-up. Patient had multiple seizures during the morning. According to the staff her seizures are provoked or precipitated when she eats. Her EEG shows that she has slowing in the range of 2-3 Hz in the left temporal lobe. This is associated with clinical manifestation of seizures. At the time of neurological evaluation this afternoon patient is awake alert oriented in time place and person. She is responded very well to verbal communication. She complains of being general unwell. - Past Medical Family Social History Allergies: Allergies promethazine [From Phenergan] Allergy (Unknown, Verified 10/13/16 13:06) - Review of Systems ROS: No change since H&P - Vital Signs and I&O's Vital Signs: Temperature 98.6 F Pulse Rate [Right Brachial] 71 Respiratory Rate 16 Blood Pressure [Left Arm] 118/67 Blood Pressure [Right Arm] 104/75 Blood Pressure 150/81 O2 Sat by Pulse Oximetry 99 Intake and Output: Intake & Output 10/11/16 10/12/16 10/13/16 10/14/16 11:59 11:59 11:59 11:59 Intake Total 3239 1360 Output Total 0 0 Balance 3239 1360 - Physical Exam Oriented: Normal Eyes: Normal Ear: Normal Nose: Normal Throat: Normal Cardiovascular: Normal : Normal Auscultation: Bowel Sounds: Normal Tenderness: Normal Skin: Normal Musculoskeletal: Normal Psychiatric: Normal, Other (Neurological examination:patient is awake alert oriented in time place and person. She is slightly slowed down from psychomotor point of view. Her speech is fluent, naming is intact. Her comprehension is intact. Cranial nerve examination: second cranial nerve visual padgett are intact on confrontation. Third fourth and sixth cranial nerve : extraocularmovements are full without any nystagmus. Pupils are 4 mm in size around equal and reactive to light. Fifth cranial nerve: facial sensations are intact bilaterally. Seventh cranial nerve: facial symmetry is intact bilaterally.eighth cranial nerve: hearing is intact bilaterally. 9th 10th cranial nerve:palate is symmetrical bilaterally. 11th cranial nerve: shoulder shrug is equal and symmetrical. Coordination: finger to nose rapid alternating movements are intact. Gait was not tested. Motor system examination: bone is not mobile. Strength is 5 over 5 in upper and lower extremities distally as well as proximally. Deep tendon reflexes are +1 equal and symmetrical in upper and lower extremities. Plantars are downgoing bilaterally. Sensory system examination: patient has no deficits.) Mood Description: Calm Affect: Normal Speech Pattern: Clear, Appropriate - Laboratory and Diagnostics Result Diagrams: 10/12/16 12:57 10/12/16 12:57 Labs: Laboratory WBC 2.8 X10^3/uL (3.6-10.0) L 10/12/16 12:57 RBC 3.83 X10^6/uL (3.5-5.4) 10/12/16 12:57 Hgb 11.8 g/dL (12.0-16.0) L 10/12/16 12:57 Hct 34.6 % (36.0-47.0) L 10/12/16 12:57 MCV 90.3 fL (80.0-100.0) 10/12/16 12:57 MCH 30.7 pg (27.0-34.0) 10/12/16 12:57 MCHC 34.0 g/dL (33.0-35.0) 10/12/16 12:57 RDW 13.8 % (11.6-16.5) 10/12/16 12:57 Plt Count 137 X10^3/uL (150.0-450.0) L 10/12/16 12:57 MPV 8.6 fL (7.4-11.0) 10/12/16 12:57 Neut % 46.8 % (42.0-75.0) 10/12/16 12:57 Lymph % 38.6 % (21.0-51.0) 10/12/16 12:57 [place] % 7.3 % (0.0-13.0) 10/12/16 12:57 Eos % 5.5 % (0.9-2.9) H 10/12/16 12:57 Baso % 1.8 % (0.2-1.0) H 10/12/16 12:57 Neut # 1.3 x10^3/uL (2.2-4.8) L 10/12/16 12:57 Lymph # 1.1 X10^3/uL (1.3-2.9) L 10/12/16 12:57 [place] # 0.2 x10^3/uL (0.3-0.8) L 10/12/16 12:57 Eos # 0.2 x10^3/uL (0.0-0.2) 10/12/16 12:57 Baso # 0.1 X10^3/uL (0.0-0.1) 10/12/16 12:57 Absolute Nucleated RBC 0.1 /100WBC 10/12/16 12:57 Sodium 141 mmol/L (136-145) 10/12/16 12:57 Corrected Sodium TNP 10/12/16 12:57 Potassium 3.9 mmol/L (3.5-5.1) 10/12/16 12:57 Chloride 106 mmol/L (98-107) 10/12/16 12:57 Carbon Dioxide 27.2 mmol/L (21-32) 10/12/16 12:57 BUN 11 mg/dL (7-18) 10/12/16 12:57 Creatinine 0.85 mg/dL (0.55-1.02) 10/12/16 12:57 Est GFR (MDRD) Af Amer > 60 (>60) 10/12/16 12:57 Est GFR (MDRD) Non-Af > 60 (>60) 10/12/16 12:57 Glucose 87 mg/dL (65-99) 10/12/16 12:57 Calcium 8.0 mg/dL (8.5-10.1) L 10/12/16 12:57 Corrected Calcium TNP 10/12/16 12:57 Magnesium 1.8 mg/dL (1.7-2.9) 10/12/16 12:57 Total Bilirubin 0.30 mg/dL (0.2-1.0) 10/12/16 12:57 AST 20 Units/L (15-37) 10/12/16 12:57 ALT 27 Units/L (12-78) 10/12/16 12:57 Alkaline Phosphatase 73 Units/L (46-116) 10/12/16 12:57 Total Protein 6.5 g/dL (6.4-8.2) 10/12/16 12:57 Albumin 3.4 g/dL (3.4-5.0) 10/12/16 12:57 Globulin 3.1 g/dL (2.5-4.5) 10/12/16 12:57 Albumin/Globulin Ratio 1.1 Ratio (1.1-2.1) 10/12/16 12:57 Addendum - Addendum Addendum: Patient was seen and examined. She is having frequent seizures. But no clinical seizure noticed after she was given Ativan in the morning. According to the nursing staff her seizures are condition to her eating maneuvers. At this point patient appears to be stable. Her EEG shows epileptiform activity. If we notice any clinical seizure in the next 24 hours we will add a second antiepileptic medication. In the meantime we will continue the present management.
[2016-10-13] MEDS: NEURONTIN CAP 100 MG PO SCH (20:44)
[2016-10-14] MEDS: NS 1000 ML 1,000 ML IV SCH ×2 (07:15→17:01)
[2016-10-14] MEDS: FOLIC ACID TAB 1 MG PO SCH (08:19)
[2016-10-14] MEDS: PATIENT'S HOME MEDICATION PO SCH ×2 (08:19→20:12)
[2016-10-14] MEDS: PriLOSEC PO SCH (08:19)
[2016-10-14] MEDS: CLARITIN PO SCH (08:19)
[2016-10-14] MEDS: PEPCID TAB 20 MG PO SCH ×2 (08:19→20:12)
[2016-10-14] MEDS: CELEXA PO SCH (08:19)
[2016-10-14] MEDS: ATIVAN INJ 2 MG VIAL IVP PRN (11:44)
[2016-10-14] MEDS: NEURONTIN CAP 100 MG PO SCH (20:12)
[2016-10-15] MEDS: NS 1000 ML 1,000 ML IV SCH ×2 (02:50→12:09)
[2016-10-15] MEDS: CLARITIN PO SCH (08:10)
[2016-10-15] MEDS: PATIENT'S HOME MEDICATION PO SCH (08:10)
[2016-10-15] MEDS: PriLOSEC PO SCH (08:10)
[2016-10-15] MEDS: CELEXA PO SCH (08:10)
[2016-10-15] MEDS: FOLIC ACID TAB 1 MG PO SCH (08:10)
[2016-10-15] MEDS: PEPCID TAB 20 MG PO SCH (08:11)
[2016-10-15 08:17] VITALS: BP 112/67
[2016-10-15] MEDS ORDERED: TYLENOL 325 MG TAB PO PRN (08:49)
--- NOTE | 2016-10-15 11:45 | PCM.DCPLAN ---
Discharge Summary - Admission Date Date of Admission: 10/15/16 - Discharge Date Discharge Date: 10/15/16 - Admission Diagnoses (1) Seizure disorder Status: Acute (2) Seizures Status: Acute - Discharge Diagnoses Discharge Diagnosis: seizure disorder - Discharge Medications Discharge Medications: Albuterol Sulfate [Proair Hfa] 2 puff INH Q4-6H PRN 10/12/16 [History] Alprazolam [XANAX 0.5 MG *] 1 mg PO HS PRN 10/12/16 [History] Gabapentin 1 cap PO HS 10/12/16 [History] Lorazepam [Ativan 2 mg] 1 mg PO PRN PRN 10/12/16 [History] Omeprazole [PRILOSEC 20 MG *] 1 cap PO DAILY 10/12/16 [History] - Hospital Course Vital Signs: Temperature 98.2 F Pulse Rate [Right Brachial] 69 Respiratory Rate 16 Blood Pressure [Left Arm] 118/67 Blood Pressure [Right Arm] 112/67 Blood Pressure 150/81 O2 Sat by Pulse Oximetry 97 Latest Lab Results: Laboratory Last Values WBC 2.8 X10^3/uL (3.6-10.0) L 10/12/16 12:57 RBC 3.83 X10^6/uL (3.5-5.4) 10/12/16 12:57 Hgb 11.8 g/dL (12.0-16.0) L 10/12/16 12:57 Hct 34.6 % (36.0-47.0) L 10/12/16 12:57 MCV 90.3 fL (80.0-100.0) 10/12/16 12:57 MCH 30.7 pg (27.0-34.0) 10/12/16 12:57 MCHC 34.0 g/dL (33.0-35.0) 10/12/16 12:57 RDW 13.8 % (11.6-16.5) 10/12/16 12:57 Plt Count 137 X10^3/uL (150.0-450.0) L 10/12/16 12:57 MPV 8.6 fL (7.4-11.0) 10/12/16 12:57 Neut % 46.8 % (42.0-75.0) 10/12/16 12:57 Lymph % 38.6 % (21.0-51.0) 10/12/16 12:57 [place] % 7.3 % (0.0-13.0) 10/12/16 12:57 Eos % 5.5 % (0.9-2.9) H 10/12/16 12:57 Baso % 1.8 % (0.2-1.0) H 10/12/16 12:57 Neut # 1.3 x10^3/uL (2.2-4.8) L 10/12/16 12:57 Lymph # 1.1 X10^3/uL (1.3-2.9) L 10/12/16 12:57 [place] # 0.2 x10^3/uL (0.3-0.8) L 10/12/16 12:57 Eos # 0.2 x10^3/uL (0.0-0.2) 10/12/16 12:57 Baso # 0.1 X10^3/uL (0.0-0.1) 10/12/16 12:57 Absolute Nucleated RBC 0.1 /100WBC 10/12/16 12:57 Sodium 141 mmol/L (136-145) 10/12/16 12:57 Corrected Sodium TNP 10/12/16 12:57 Potassium 3.9 mmol/L (3.5-5.1) 10/12/16 12:57 Chloride 106 mmol/L (98-107) 10/12/16 12:57 Carbon Dioxide 27.2 mmol/L (21-32) 10/12/16 12:57 BUN 11 mg/dL (7-18) 10/12/16 12:57 Creatinine 0.85 mg/dL (0.55-1.02) 10/12/16 12:57 Est GFR (MDRD) Af Amer > 60 (>60) 10/12/16 12:57 Est GFR (MDRD) Non-Af > 60 (>60) 10/12/16 12:57 Glucose 87 mg/dL (65-99) 10/12/16 12:57 Calcium 8.0 mg/dL (8.5-10.1) L 10/12/16 12:57 Corrected Calcium TNP 10/12/16 12:57 Magnesium 1.8 mg/dL (1.7-2.9) 10/12/16 12:57 Total Bilirubin 0.30 mg/dL (0.2-1.0) 10/12/16 12:57 AST 20 Units/L (15-37) 10/12/16 12:57 ALT 27 Units/L (12-78) 10/12/16 12:57 Alkaline Phosphatase 73 Units/L (46-116) 10/12/16 12:57 Total Protein 6.5 g/dL (6.4-8.2) 10/12/16 12:57 Albumin 3.4 g/dL (3.4-5.0) 10/12/16 12:57 Globulin 3.1 g/dL (2.5-4.5) 10/12/16 12:57 Albumin/Globulin Ratio 1.1 Ratio (1.1-2.1) 10/12/16 12:57 - Discharge Plan Disposition: 01 HOME, SELF-CARE Condition: Stable - Follow ups/Referrals Follow ups/Referrals: YOLY CHAVEZ [STAFF PHYSICIAN] - NFD,None [Primary Care Provider] - - Instructions Instructions: Seizure, Adult, [id number]
--- NOTE | 2016-10-15 11:53 | PCM.PROG ---
Progress Note - Progress Note for Day of Date: 10/15/16 - Subjective Subjective: Patient was seen and examined today as a follow-up. Patient did not have any seizure in the last 24 hours. She is feeling very well. She is voicing no complaints. - Past Medical Family Social History Allergies: Allergies promethazine [From Phenergan] Allergy (Unknown, Verified 10/13/16 13:06) - Review of Systems ROS: No change since H&P - Vital Signs and I&O's Vital Signs: Temperature 98.2 F Pulse Rate [Right Brachial] 69 Respiratory Rate 16 Blood Pressure [Left Arm] 118/67 Blood Pressure [Right Arm] 112/67 Blood Pressure 150/81 O2 Sat by Pulse Oximetry 97 Intake and Output: Intake & Output 10/12/16 10/13/16 10/14/16 10/15/16 11:59 11:59 11:59 11:59 Intake Total 3239 3923 3930 Output Total 0 0 Balance 3239 3923 3930 - Physical Exam Oriented: Normal Eyes: Normal Ear: Normal Nose: Normal Throat: Normal Cardiovascular: Normal : Normal Auscultation: Bowel Sounds: Normal Palpation: Normal Tenderness: Normal Skin: Normal Musculoskeletal: Normal Psychiatric: Normal, Other (Neurological examination:patient is awake alert oriented in time place and person. She is slightly slowed down from psychomotor point of view. Her speech is fluent, naming is intact. Her comprehension is intact. Cranial nerve examination: second cranial nerve visual padgett are intact on confrontation. Third fourth and sixth cranial nerve : extraocularmovements are full without any nystagmus. Pupils are 4 mm in size around equal and reactive to light. Fifth cranial nerve: facial sensations are intact bilaterally. Seventh cranial nerve: facial symmetry is intact bilaterally.eighth cranial nerve: hearing is intact bilaterally. 9th 10th cranial nerve:palate is symmetrical bilaterally. 11th cranial nerve: shoulder shrug is equal and symmetrical. Coordination: finger to nose rapid alternating movements are intact. Gait was not tested. Motor system examination: bone is not mobile. Strength is 5 over 5 in upper and lower extremities distally as well as proximally. Deep tendon reflexes are +1 equal and symmetrical in upper and lower extremities. Plantars are downgoing bilaterally. Sensory system examination: patient has no deficits.) Mood Description: Calm Affect: Normal Speech Pattern: Clear, Appropriate - Laboratory and Diagnostics Result Diagrams: 10/12/16 12:57 10/12/16 12:57 Labs: Laboratory WBC 2.8 X10^3/uL (3.6-10.0) L 10/12/16 12:57 RBC 3.83 X10^6/uL (3.5-5.4) 10/12/16 12:57 Hgb 11.8 g/dL (12.0-16.0) L 10/12/16 12:57 Hct 34.6 % (36.0-47.0) L 10/12/16 12:57 MCV 90.3 fL (80.0-100.0) 10/12/16 12:57 MCH 30.7 pg (27.0-34.0) 10/12/16 12:57 MCHC 34.0 g/dL (33.0-35.0) 10/12/16 12:57 RDW 13.8 % (11.6-16.5) 10/12/16 12:57 Plt Count 137 X10^3/uL (150.0-450.0) L 10/12/16 12:57 MPV 8.6 fL (7.4-11.0) 10/12/16 12:57 Neut % 46.8 % (42.0-75.0) 10/12/16 12:57 Lymph % 38.6 % (21.0-51.0) 10/12/16 12:57 [place] % 7.3 % (0.0-13.0) 10/12/16 12:57 Eos % 5.5 % (0.9-2.9) H 10/12/16 12:57 Baso % 1.8 % (0.2-1.0) H 10/12/16 12:57 Neut # 1.3 x10^3/uL (2.2-4.8) L 10/12/16 12:57 Lymph # 1.1 X10^3/uL (1.3-2.9) L 10/12/16 12:57 [place] # 0.2 x10^3/uL (0.3-0.8) L 10/12/16 12:57 Eos # 0.2 x10^3/uL (0.0-0.2) 10/12/16 12:57 Baso # 0.1 X10^3/uL (0.0-0.1) 10/12/16 12:57 Absolute Nucleated RBC 0.1 /100WBC 10/12/16 12:57 Sodium 141 mmol/L (136-145) 10/12/16 12:57 Corrected Sodium TNP 10/12/16 12:57 Potassium 3.9 mmol/L (3.5-5.1) 10/12/16 12:57 Chloride 106 mmol/L (98-107) 10/12/16 12:57 Carbon Dioxide 27.2 mmol/L (21-32) 10/12/16 12:57 BUN 11 mg/dL (7-18) 10/12/16 12:57 Creatinine 0.85 mg/dL (0.55-1.02) 10/12/16 12:57 Est GFR (MDRD) Af Amer > 60 (>60) 10/12/16 12:57 Est GFR (MDRD) Non-Af > 60 (>60) 10/12/16 12:57 Glucose 87 mg/dL (65-99) 10/12/16 12:57 Calcium 8.0 mg/dL (8.5-10.1) L 10/12/16 12:57 Corrected Calcium TNP 10/12/16 12:57 Magnesium 1.8 mg/dL (1.7-2.9) 10/12/16 12:57 Total Bilirubin 0.30 mg/dL (0.2-1.0) 10/12/16 12:57 AST 20 Units/L (15-37) 10/12/16 12:57 ALT 27 Units/L (12-78) 10/12/16 12:57 Alkaline Phosphatase 73 Units/L (46-116) 10/12/16 12:57 Total Protein 6.5 g/dL (6.4-8.2) 10/12/16 12:57 Albumin 3.4 g/dL (3.4-5.0) 10/12/16 12:57 Globulin 3.1 g/dL (2.5-4.5) 10/12/16 12:57 Albumin/Globulin Ratio 1.1 Ratio (1.1-2.1) 10/12/16 12:57 - Plan (1) Seizure disorder Status: Acute (2) Seizures Status: Acute Plan: Patient is seizure free. She is doing very well. Subjectively she is feeling very good. Patient is stable neurologically. She can be discharged. She will be followed up in my clinic next week.
== END 2016-10-15 12:25 | disposition home or self-care (01) | DRG 101 ==
LOC: ICU 12:26
PROVIDERS: ADMIT Psychiatry & Neurology Neurology; ATTEND Psychiatry & Neurology Neurology
DX: G40.89 Other seizures (principal); G40.802 Other epilepsy, not intractable, without status epilepticus; F32.89 Other specified depressive episodes; F41.8 Other specified anxiety disorders; D64.89 Other specified anemias; D72.818 Other decreased white blood cell count
CPT/HCPCS: 36415; 80053; 83735; 85025; 95819; A4222; G0378; J2060

== ENCOUNTER 2016-10-23 11:27 | Emergency (ER) | payer OTHER, MEDICAID ==
[2016-10-23 11:35] VITALS: BMI 29.2
[2016-10-23 11:41] VITALS: BP 140/73
[2016-10-23] MEDS ORDERED: ATIVAN INJ 2 MG VIAL IVP ONE (11:59)
[2016-10-23] MEDS ORDERED: ATIVAN INJ 2 MG VIAL ONE (12:08)
[2016-10-23 12:34] LABS: BASOPHILS # (AUTO) 0.1 X10^3/uL (0.0-0.1); BASOPHILS % (AUTO) 2.2 % (0.2-1.0); EOSINOPHILS # (AUTO) 0.2 x10^3/uL (0.0-0.2); EOSINOPHILS % (AUTO) 7.2 % (0.9-2.9); HEMATOCRIT 36.7 % (36.0-47.0); HEMOGLOBIN 12.6 g/dL (12.0-16.0); LYMPHOCYTES # (AUTO) 1.1 X10^3/uL (1.3-2.9); MEAN CORPUSCULAR HEMOGLOBIN 30.8 pg (27.0-34.0); MEAN CORPUSCULAR HGB CONC 34.3 g/dL (33.0-35.0); MEAN CORPUSCULAR VOLUME 89.9 fL (80.0-100.0); MEAN PLATELET VOLUME 8.7 fL (7.4-11.0); MONOCYTES # (AUTO) 0.3 x10^3/uL (0.3-0.8); MONOCYTES % (AUTO) 9.7 % (0.0-13.0); NEUTROPHILS # (AUTO) 1.2 x10^3/uL (2.2-4.8); NEUTROPHILS % (AUTO) 41.9 % (42.0-75.0); PLATELET COUNT 164 X10^3/uL (150.0-450.0); RED BLOOD COUNT 4.08 X10^6/uL (3.5-5.4); RED CELL DISTRIBUTION WIDTH 13.7 % (11.6-16.5); WHITE BLOOD COUNT 2.8 X10^3/uL (3.6-10.0)
[2016-10-23] MEDS ORDERED: CEREBYX INJ IVP ONE (12:45)
[2016-10-23 12:47] LABS: ALANINE AMINOTRANSFERASE 20 Units/L (12-78); ALBUMIN 3.5 g/dL (3.4-5.0); ALKALINE PHOSPHATASE 83 Units/L (46-116); ASPARTATE AMINO TRANSFERASE 17 Units/L (15-37); BLOOD UREA NITROGEN 11 mg/dL (7-18); CALCIUM 8.5 mg/dL (8.5-10.1); CARBON DIOXIDE 29.1 mmol/L (21-32); CHLORIDE 104 mmol/L (98-107); CREATININE 0.82 mg/dL (0.55-1.02); GLUCOSE 96 mg/dL (65-99); SODIUM 138 mmol/L (136-145); TOTAL PROTEIN 6.9 g/dL (6.4-8.2); eGFR BLACK RACES > 60 (>60); eGFR NON BLACK RACES > 60 (>60)
[2016-10-23] MEDS ORDERED: NS 100 ML IV 100 ML IV ONE (12:48)
[2016-10-23] MEDS ORDERED: CEREBYX INJ ONE (12:48)
--- NOTE | 2016-10-23 12:48 | DR.SEIZA ---
HPI - Time Seen Time seen: 12:45 - Primary Care Physician Primary Care Physician: KATHY - HPI Comment HPI Comment: HISTORY BELOW - Complaints Chief Complaint Doctors Comments: SEIZURE AT HOME, SEVERAL. NONE IN ED SO FAR. PATIENT DENIES FEVER. WAS DOING FINE UNTILL TODAY WHEN SHE STARTED HAVING SEIZURES. Chief Complaint:: PT. C/O SEIZURE ACIVITY WHICH BEGAN ABOUT 30-45 MINUTES [employer] FAMILY STATES PT. HAS HAD 15 SEIZURES IN THIS TIME FRAME. - Reviewed Nurses Notes Reviewed: Yes - Source History Provided: Patient, EMS - Mode of Arrival Mode of Arrival: EMS - Timing Onset of Chief Complaint: 10/23/16 - Duration Since Onset: Intermittent Duration: Minutes, Hours - Quality Quality: Shaking - Location Location: Generalized - Context Prior to Seizure:: Normal During Seizure: Awake History of:: Seizure Disorder - Associated Signs and Symptoms Associated Signs and Symptoms:: Headache. denies: Fever, Nausea, Vomiting - Severity Subjective or Unknown: Unknown PMH - PMH Past Medical History: Yes Past Medical History: Anxiety, Asthma, Depression, Seizures Past Surgical History: Yes Surgical History: Appendectomy, 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, [employer] Surgery, Hysterectomy, Tonsillectomy - Family History History of Family Medical Conditions: Yes Family Medical History: Diabetes Mellitus, Cancer, Heart Failure, Hypertension - Social History Does patient currently use any type of tobacco product: No Have you used tobacco products in the last 12 months: No Type of Tobacco Use: None Does any household member use tobacco: No Alcohol Use: None Do you use any recreational Drugs:: No Lives With: Family Lives Where: Home - infectious screening In the last 2 months have you had wt loss of >10#?: NO Have you had fever, night sweats or hemotysis?: No Have you traveled outside the country in the last 6 months?: No Isolation: Standard ROS - Review of Systems Constitutional: Weakness, Fatigue Eyes: No Symptoms Reported. negative: Eye Pain, Discharge ENTM: No Symptoms Reported. negative: Ear Pain, Nose Discharge, Nose Congestion , Throat Pain Respiratoy: No Symptoms Reported. negative: Productive Cough, Short of Breath, Wheezing, Hemoptysis Cardiovascular: No Symptoms Reported. negative: Chest Pain, Edema Gastrointestinal/Abdominal: No Symptoms Reported, Nausea, Vomiting. negative: Abdominal Pain Genitourinary: No Symptoms Reported Neurological: Headache, Weakness, Dizziness Musculoskeletal: Muscle Pain Integumentary: No Symptoms Reported Hematologic/Lymphatic: No Symptoms Reported Endocrine: No Symptoms Reported All Other Systems: Reviewed and Negative PE - Vital Signs Vitals: Temperature 97.9 F Pulse Rate 81 Respiratory Rate 16 Blood Pressure [Left Arm] 118/67 Blood Pressure [Right Arm] 112/67 Blood Pressure 140/73 O2 Sat by Pulse Oximetry 97 - General Limitations: No Limitations General Appearance: Alert - Head Head Exam: Normal Inspection Head Exam Physical: Laceration - Eyes Eye exam: Normal Appearance Eyelids: Normal Inspection: Bilateral Pupils: Regular, Round: Bilateral, Reactive: Bilateral Sclera/Conjunctival: Normal Inspection: Bilateral - ENT ENT Exam: Normal External Ear Exam Mouth Exam: Normal Inspection - Neck Neck Exam: Trachea Midline - Chest Chest Inspection: Symmetric Chest Wall Rise - Respiratory Respiratory Exam: Normal Lung Sounds Bilat Respiratory Exam: Bilateral Clear to Auscultation - Cardiovascular Cardiovascular Exam: Regular Rate, Normal Rhythm, Normal Heart Sounds - Abdominal Exam Abdominal Exam: Normal Bowel Sounds, Soft. negative: Tenderness - Extremities Extremities Exam: Normal Inspection - Back Back Exam: Normal Inspection - Neurologic Neurological Exam: Alert, Oriented X3, CN II-XII Intact Cranial Nerve Exam: EOM Function (II, III, IV, ): Normal, Facial Sensation (V) : Normal, Facial Palsy (VII): Normal, Gag reflex (XI): Normal, Spinal Accessory Function (XI): Normal, Tongue Deviation: Normal Motor Strength - LUE: 5/5 Motor Strength - RUE: 5/5 Motor Strength - LLE: 5/5 Motor Strength - RLE: 5/5 MDM - Differential Diagnosis Seizure due to:: Hypoclacemia, Hypoglycemia, Hyponatremia, Hypoxemia, Idiopathic Course - Treatment Treatment: SEE ORDERS. - Consultation Consultation Comments: DISCUSS PATIENT WITH DR. CHAVEZ HER NEUROLOGIST. HE WANT DILANTIN ADDED TO PATIENT MEDICATION. LOARDING DOSE IV AND PO TO FOLLOW. - Education/Counseling Education/Counseling: Patient, Education Educated On: Treatment, Diagnosis, Needs for Follow Up ROR - Labs Reviewed Result Diagrams: 10/23/16 12:06 10/23/16 12:06 Laboratory: WBC 2.8 X10^3/uL (3.6-10.0) L 10/23/16 12:06 RBC 4.08 X10^6/uL (3.5-5.4) 10/23/16 12:06 Hgb 12.6 g/dL (12.0-16.0) 10/23/16 12:06 Hct 36.7 % (36.0-47.0) 10/23/16 12:06 MCV 89.9 fL (80.0-100.0) 10/23/16 12:06 MCH 30.8 pg (27.0-34.0) 10/23/16 12:06 MCHC 34.3 g/dL (33.0-35.0) 10/23/16 12:06 RDW 13.7 % (11.6-16.5) 10/23/16 12:06 Plt Count 164 X10^3/uL (150.0-450.0) 10/23/16 12:06 MPV 8.7 fL (7.4-11.0) 10/23/16 12:06 Neut % 41.9 % (42.0-75.0) L 10/23/16 12:06 Lymph % 39.0 % (21.0-51.0) 10/23/16 12:06 [place] % 9.7 % (0.0-13.0) 10/23/16 12:06 Eos % 7.2 % (0.9-2.9) H 10/23/16 12:06 Baso % 2.2 % (0.2-1.0) H 10/23/16 12:06 Neut # 1.2 x10^3/uL (2.2-4.8) L 10/23/16 12:06 Lymph # 1.1 X10^3/uL (1.3-2.9) L 10/23/16 12:06 [place] # 0.3 x10^3/uL (0.3-0.8) 10/23/16 12:06 Eos # 0.2 x10^3/uL (0.0-0.2) 10/23/16 12:06 Baso # 0.1 X10^3/uL (0.0-0.1) 10/23/16 12:06 Absolute Nucleated RBC 0.1 /100WBC 10/23/16 12:06 Sodium 138 mmol/L (136-145) 10/23/16 12:06 Corrected Sodium TNP 10/23/16 12:06 Potassium 3.7 mmol/L (3.5-5.1) 10/23/16 12:06 Chloride 104 mmol/L (98-107) 10/23/16 12:06 Carbon Dioxide 29.1 mmol/L (21-32) 10/23/16 12:06 BUN 11 mg/dL (7-18) 10/23/16 12:06 Creatinine 0.82 mg/dL (0.55-1.02) 10/23/16 12:06 Est GFR (MDRD) Af Amer > 60 (>60) 10/23/16 12:06 Est GFR (MDRD) Non-Af > 60 (>60) 10/23/16 12:06 Glucose 96 mg/dL (65-99) 10/23/16 12:06 Calcium 8.5 mg/dL (8.5-10.1) 10/23/16 12:06 Corrected Calcium TNP 10/23/16 12:06 Magnesium 2.0 mg/dL (1.7-2.9) 10/23/16 12:06 Total Bilirubin 0.30 mg/dL (0.2-1.0) 10/23/16 12:06 AST 17 Units/L (15-37) 10/23/16 12:06 ALT 20 Units/L (12-78) 10/23/16 12:06 Alkaline Phosphatase 83 Units/L (46-116) 10/23/16 12:06 Total Protein 6.9 g/dL (6.4-8.2) 10/23/16 12:06 Albumin 3.5 g/dL (3.4-5.0) 10/23/16 12:06 Globulin 3.4 g/dL (2.5-4.5) 10/23/16 12:06 Albumin/Globulin Ratio 1.0 Ratio (1.1-2.1) L 10/23/16 12:06 - Diagnosis Discharge Problem: Seizures - Discharge Plan Condition: Stable Prescriptions: Phenytoin Sodium Ext Rel [Dilantin Cap 100 mg Ext Rel] 300 mg PO HS #90 cap - Follow ups/Referrals Follow ups/Referrals: NFD,None [Primary Care Provider] - 3 days YOLY CHAVEZ [STAFF PHYSICIAN] - 3 days - Instructions Instructions: Seizure, Adult, [id number] Additional Instructions: RETURN TO ED IF WORSE.
== END 2016-10-23 14:46 | disposition home or self-care (01) ==
LOC: ER 11:30
DX: R56.9 Unspecified convulsions (principal)
CPT/HCPCS: 36415; 80053; 83735; 85025; 96365; 96374; 96375; 99283; S0078; J2060

== ENCOUNTER 2016-10-29 21:27 | Observation (INO) | payer OTHER, MEDICAID ==
--- NOTE | 2016-10-29 21:50 | DR.SEIZA ---
HPI - Time Seen Time seen: 21:50 - Primary Care Physician Primary Care Physician: YOLY CHAVEZ - HPI Comment HPI Comment: HISTORY BELOW. - Complaints Chief Complaint Doctors Comments: PATIENT SAID SHE HAD SEIZURE TONIGHT AT HOME. TOOK ATIVAN AND DILANTIN TONIGHT. HISTORY SEIZURE DISODER ON DILANTIN AND VIMPAT AND ATIVAN NEEDED. PATIENT SAID SHE IS COMPLIANT WITH MEDICATION. Chief Complaint:: SEIZURES STARTED APPROX 1900 TONIGHT, LASTING APPROX 1-2 SEC LONG WITH HEAD SHAKING DESCRIBED BY EMS. EMS STATES, PT REMAINS CONSCIOUS, ALERT AND ORIENTED WITH DURATION OF SEIZURE. Self Treatment fo Chief Complaint: DILANTIN TIMES 3 TONIGHT AND ATIVAN - Reviewed Nurses Notes Reviewed: Yes - Source History Provided: Patient, EMS - Mode of Arrival Mode of Arrival: EMS - Timing Onset of Chief Complaint: 10/29/16 - Duration Since Onset: Since Onset - Quality Quality: Grand mal - Location Location: Generalized - Context Prior to Seizure:: Normal During Seizure: LOC History of:: Seizure Disorder Medication Compliance: Yes - Associated Signs and Symptoms Associated Signs and Symptoms:: Headache, Nausea. denies: Fever, Vomiting PMH - PMH Past Medical History: Yes Past Medical History: Anxiety, Asthma, Depression, Seizures Past Surgical History: Yes Surgical History: Appendectomy, 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, SECTION 8 [employer] Surgery, Hysterectomy, Tonsillectomy - Family History History of Family Medical Conditions: Yes Family Medical History: Diabetes Mellitus, Cancer, Heart Failure, Hypertension - Social History Alcohol Use: None Do you use any recreational Drugs:: No Lives With: Family Lives Where: Home - infectious screening Have you traveled outside the country in the last 6 months?: No Isolation: Standard ROS - Review of Systems Constitutional: negative: Chills, Diaphoresis, Fever, Malaise, Weakness, Fatigue , Loss of Appetite Eyes: No Symptoms Reported. negative: Eye Pain, Blurred Vision, Discharge, Photophobia, Diplopia ENTM: No Symptoms Reported. negative: Ear Pain, Nose Discharge, Nose Congestion , Throat Pain Respiratoy: No Symptoms Reported. negative: Productive Cough, Non-Productive Cough, Short of Breath, Wheezing, Hemoptysis Cardiovascular: No Symptoms Reported. negative: Chest Pain Gastrointestinal/Abdominal: Nausea. negative: Abdominal Pain, Constipation, Diarrhea, Vomiting Genitourinary: No Symptoms Reported. negative: Dysuria, Frequency, Hematuria Neurological: Headache, Seizure. negative: Weakness, Dizziness Musculoskeletal: Muscle Pain Integumentary: No Symptoms Reported Hematologic/Lymphatic: No Symptoms Reported Endocrine: No Symptoms Reported All Other Systems: Reviewed and Negative PE - Vital Signs Vitals: Temperature 98.3 F Pulse Rate 68 Respiratory Rate 16 Blood Pressure [Left Arm] 118/67 Blood Pressure [Right Arm] 112/67 Blood Pressure 142/87 O2 Sat by Pulse Oximetry 98 - General Limitations: No Limitations General Appearance: Alert - Head Head Exam: Normal Inspection - Eyes Eye exam: Normal Appearance Eyelids: Normal Inspection: Bilateral Pupils: Regular, Round: Bilateral, Reactive: Bilateral Sclera/Conjunctival: Normal Inspection: Bilateral - ENT ENT Exam: Normal Oropharynx, Normal External Ear Exam, Mucous Membranes Moist, TM's Normal Bilaterally Mouth Exam: Normal Inspection. negative: Trismus - Neck Neck Exam: Trachea Midline. negative: Tenderness, Meningismus, Lymphadenopathy - Chest Chest Inspection: Symmetric Chest Wall Rise - Respiratory Respiratory Exam: Normal Lung Sounds Bilat Respiratory Exam: Bilateral Clear to Auscultation - Cardiovascular Cardiovascular Exam: Regular Rate, Normal Rhythm, Normal Heart Sounds - Abdominal Exam Abdominal Exam: Normal Bowel Sounds, Soft. negative: Tenderness - Extremities Extremities Exam: Normal Inspection - Back Back Exam: Normal Inspection - Neurologic Neurological Exam: Alert, Oriented X3 Speech: Fluid Speech Cranial Nerve Exam: EOM Function (II, III, IV, ): Normal, Facial Sensation (V) : Normal, Facial Palsy (VII): Normal, Gag reflex (XI): Normal, Spinal Accessory Function (XI): Normal, Tongue Deviation: Normal Motor Strength - LUE: 5/5 Motor Strength - RUE: 5/5 Motor Strength - LLE: 5/5 Motor Strength - RLE: 5/5 Upper Motor Neuron Exam: Babinski Sign: Normal DTR: achilles tendon (L): 4+, achilles tendon (R): 4+, brachioradialis (L): 4+, brachioradialis (R): 4+, Patellar (L): 4+, patellar (R): 4+ - Psychiatric Psychiatric Exam: Anxious - Skin Skin Exam: Normal Color MDM - Additional Information Obtained Additional Information Obtained From: Family - Differential Diagnosis Seizure due to:: Hypoclacemia, Hypoglycemia, Hyponatremia, Mass lesion Differential Diagnosis Comment: SEIZURES Course - Treatment Treatment: SEE ORDERS. IN ED, FAMILY MEMBER OBSERVE SEVERAL SHAKING MOVEMENT SAID TO BE HOW PATIENT AT TIMES SEIZE IN THIS MANNER. - Consultation Consultation Comments: DISCUSS PATIENT WITH DR. CHAVEZ, PATIENT NEUROLOGIST.RECOMMEND ADMISSION TO HOSPITAL FOR IN PATIENT MANAGEMENT. DR FUENTES WILL ADMIT PATIENT. - Education/Counseling Education/Counseling: Patient, Family, Education Educated On: Diagnosis, Needs for Follow Up ROR - Labs Reviewed Laboratory Results Reviewed?: Yes Result Diagrams: 10/29/16 22:17 10/29/16 22:17 Laboratory: WBC 3.6 X10^3/uL (3.6-10.0) 10/29/16 22: RBC 3.89 X10^6/uL (3.5-5.4) 10/29/16 22: Hgb 12.0 g/dL (12.0-16.0) 10/29/16: Hct 35.2 % (36.0-47.0) L 10/29/16 22: MCV 90.6 fL (80.0-100.0) 10/29/16 22: MCH 30.9 pg (27.0-34.0) 10/29/16 22: MCHC 34.1 g/dL (33.0-35.0) 10/29/16 22: RDW 13.7 % (11.6-16.5) 10/29/16: Plt Count 152 X10^3/uL (150.0-450.0) 10/29/16 22: MPV 8.5 fL (7.4-11.0) 10/29/16 22:17 Neut % 43.7 % (42.0-75.0) 10/29/16 22: Lymph % 40.3 % (21.0-51.0) 10/29/16 22:17 Nolan % 7.3 % (0.0-13.0) 10/29/16 22: Eos % 6.6 % (0.9-2.9) H 10/29/16 22: Baso % 2.1 % (0.2-1.0) H 10/29/16 22:17 Neut # 1.6 x10^3/uL (2.2-4.8) L 10/29/16 22: Lymph # 1.4 X10^3/uL (1.3-2.9) 10/29/16 22:17 Nolan # 0.3 x10^3/uL (0.3-0.8) 10/29/16 22:17 Eos # 0.2 x10^3/uL (0.0-0.2) 10/29/16 22:17 Baso # 0.1 X10^3/uL (0.0-0.1) 10/29/16 22:17 Absolute Nucleated RBC 0.0 /100WBC 10/29/16 22:17 - XRAY XRAY Interpreted by: Radiologist XRAY Findings: REPORT DISCUSS WITH PATIENT. - Diagnosis Discharge Problem: Intractable seizures, Seizure disorder - Discharge Plan Disposition: ADMITTED INPATIENT Condition: Stable - Follow ups/Referrals - Instructions
[2016-10-29 22:25] LABS: BASOPHILS # (AUTO) 0.1 X10^3/uL (0.0-0.1); BASOPHILS % (AUTO) 2.1 % (0.2-1.0); EOSINOPHILS # (AUTO) 0.2 x10^3/uL (0.0-0.2); EOSINOPHILS % (AUTO) 6.6 % (0.9-2.9); HEMATOCRIT 35.2 % (36.0-47.0); LYMPHOCYTES # (AUTO) 1.4 X10^3/uL (1.3-2.9); LYMPHOCYTES % (AUTO) 40.3 % (21.0-51.0); MEAN CORPUSCULAR HEMOGLOBIN 30.9 pg (27.0-34.0); MEAN CORPUSCULAR HGB CONC 34.1 g/dL (33.0-35.0); MEAN CORPUSCULAR VOLUME 90.6 fL (80.0-100.0); MEAN PLATELET VOLUME 8.5 fL (7.4-11.0); MONOCYTES # (AUTO) 0.3 x10^3/uL (0.3-0.8); MONOCYTES % (AUTO) 7.3 % (0.0-13.0); NEUTROPHILS # (AUTO) 1.6 x10^3/uL (2.2-4.8); NEUTROPHILS % (AUTO) 43.7 % (42.0-75.0); PLATELET COUNT 152 X10^3/uL (150.0-450.0); RED BLOOD COUNT 3.89 X10^6/uL (3.5-5.4); RED CELL DISTRIBUTION WIDTH 13.7 % (11.6-16.5); WHITE BLOOD COUNT 3.6 X10^3/uL (3.6-10.0)
[2016-10-29 22:50] LABS: ALANINE AMINOTRANSFERASE 17 Units/L (12-78); ALBUMIN 3.4 g/dL (3.4-5.0); ALKALINE PHOSPHATASE 78 Units/L (46-116); ASPARTATE AMINO TRANSFERASE 14 Units/L (15-37); BLOOD UREA NITROGEN 9 mg/dL (7-18); CALCIUM 8.1 mg/dL (8.5-10.1); CARBON DIOXIDE 26.1 mmol/L (21-32); CHLORIDE 108 mmol/L (98-107); CREATININE 0.72 mg/dL (0.55-1.02); GLUCOSE 89 mg/dL (65-99); MAGNESIUM 1.9 mg/dL (1.7-2.9); SODIUM 142 mmol/L (136-145); TOTAL PROTEIN 6.6 g/dL (6.4-8.2); eGFR BLACK RACES > 60 (>60); eGFR NON BLACK RACES > 60 (>60)
[2016-10-30] MEDS ORDERED: ATIVAN INJ 2 MG VIAL IVP PRN (00:31)
[2016-10-30] MEDS: NS 1000 ML 1,000 ML IV SCH ×2 (01:04→09:16)
[2016-10-30 01:24] VITALS: BMI 29.0
[2016-10-30 06:13] LABS: BASOPHILS # (AUTO) 0.1 X10^3/uL (0.0-0.1); BASOPHILS % (AUTO) 2.3 % (0.2-1.0); EOSINOPHILS # (AUTO) 0.2 x10^3/uL (0.0-0.2); EOSINOPHILS % (AUTO) 7.9 % (0.9-2.9); HEMATOCRIT 33.1 % (36.0-47.0); HEMOGLOBIN 11.2 g/dL (12.0-16.0); LYMPHOCYTES # (AUTO) 1.6 X10^3/uL (1.3-2.9); LYMPHOCYTES % (AUTO) 49.3 % (21.0-51.0); MEAN CORPUSCULAR HEMOGLOBIN 30.8 pg (27.0-34.0); MEAN CORPUSCULAR HGB CONC 33.7 g/dL (33.0-35.0); MEAN CORPUSCULAR VOLUME 91.4 fL (80.0-100.0); MONOCYTES # (AUTO) 0.3 x10^3/uL (0.3-0.8); MONOCYTES % (AUTO) 8.5 % (0.0-13.0); PLATELET COUNT 144 X10^3/uL (150.0-450.0); RED BLOOD COUNT 3.62 X10^6/uL (3.5-5.4); RED CELL DISTRIBUTION WIDTH 13.5 % (11.6-16.5); WHITE BLOOD COUNT 3.1 X10^3/uL (3.6-10.0)
[2016-10-30 06:26] LABS: ALANINE AMINOTRANSFERASE 16 Units/L (12-78); ALBUMIN 2.9 g/dL (3.4-5.0); ALKALINE PHOSPHATASE 71 Units/L (46-116); ASPARTATE AMINO TRANSFERASE 12 Units/L (15-37); BLOOD UREA NITROGEN 7 mg/dL (7-18); CALCIUM 7.9 mg/dL (8.5-10.1); CARBON DIOXIDE 27.4 mmol/L (21-32); CHLORIDE 108 mmol/L (98-107); COR CA(FOR HYPOALB) 8.8 mg/dL (8.5-10.1); CREATININE 0.73 mg/dL (0.55-1.02); GLUCOSE 82 mg/dL (65-99); SODIUM 141 mmol/L (136-145); TOTAL PROTEIN 5.8 g/dL (6.4-8.2); eGFR BLACK RACES > 60 (>60); eGFR NON BLACK RACES > 60 (>60)
[2016-10-30] MEDS ORDERED: POTASSIUM CHLORIDE LIQ 20 MEQ UDC PO PRN (07:06)
[2016-10-30] MEDS ORDERED: K-RIDER 10 MEQ/NS 100 ML 10 MEQ/100 ML BAG IV PRN (07:06)
[2016-10-30] MEDS ORDERED: K-LYTE EFFERVESCENT PO PRN (07:06)
[2016-10-30] MEDS ORDERED: K-DUR TAB 20 MEQ PO PRN (07:06)
[2016-10-30] MEDS ORDERED: LACOSAMIDE PO SCH (09:00)
[2016-10-30] MEDS ORDERED: FOLIC ACID TAB 1 MG PO SCH (09:00)
[2016-10-30] MEDS ORDERED: CLARITIN PO SCH (09:00)
[2016-10-30] MEDS ORDERED: CELEXA PO SCH (09:00)
[2016-10-30] MEDS ORDERED: PEPCID 20 MG IV PREMIX* 20 MG/50 ML BAG IV SCH (09:00)
[2016-10-30 12:50] VITALS: BP 124/70
--- NOTE | 2016-10-30 14:22 | DR.CARTERS ---
Short Stay Summary - Short Stay Summary for: Short Stay Summary for Date of:: 10/30/16 - Admission Date Date of Admission: 10/30/16 - Discharge Date Discharge Date: 10/30/16 - Admission Diagnoses (1) Seizure Status: Acute - Hospital Course Hospital Course: IS A 41 YEAR OLD PATIENT OF [facility]ARC[facility] AND WHO PRESENTED TO THE EMERGENCY ROOM VIA EMS WITH COMPLAINTS OF SEIZURES THAT STARTED APPROXIMATELY 2 HOURS PRIOR TO ARRIVAL TO ER. EMS STATED THAT PATIENT HAD A EPISODE INROUTE TO ER THAT LASTED ONLY A FEW SECONDS AND WAS NOTED WITH HEAD SHAKING. THEY STATED THAT PATIENT REMAINED CONSCIOUS, ALERT, AND ORIENTED WITH DURATION OF SEIZURE. PATIENT STATED THAT SHE HAD ANOTHER SEIZURE TONIGHT AT HOME. SHE STATED THAT SHE TAKES ATIVAN, DILANTIN, AND VIMPAT FOR HER SEIZURES AND SHE IS COMPLIANT WITH MEDICATION. ON ARRIVAL TO ER, VITALS WERE 98.3, 68, 16, 118/67. LABS WERE OBTAINED. CBC WNL EXCEPT HCT 35.2. CMP WNL EXCEPT CHLORIDE 108, CALCIUM 8.1, AST 14. DILANTIN LEVEL WAS 10.6. WE ADMITTED PATIENT FOR FURTHER TREATMENT AND EVALUATION. WE STARTED PATIENT ON IVF AND PLAN TO CONSULT WITH . PATIENT WAS ALERT AND ORIENTED ON MORNING ROUNDS WITH NO COMPLAINTS NOTED. VITALS THIS AM WERE 98.5, 68, 20, 100%, 98/52. THIS MORNINGS CBC REPORTED WBC 3.1, HGB 11.2, HCT 33.1. CMP REPORTED POTASSIUM 3.2, CHLORIDE 108, CALCIUM 7.9, AST 12, ALBUMIN 2.9. WE SPOKE WITH . HE STATED THAT HE SAW PATIENT IN CLINIC 2 DAYS PRIOR. HE IS COMFORTABLE WITH DISCHARGING PATIENT HOME ON CURRENT HOME MEDICATIONS AND HAVING HER FOLLOW UP IN HIS OFFICE TOMORROW. WE PLANNED FOR DISCHARGE. INSTRUCTIONS FOR MEDICATION AND FOLLOW UP WERE GIVEN TO PATIENT. SHE VERBALIZED UNDERSTANDING. PATIENT WAS DISCHARGED HOME IN STABLE CONDITION WITH INSTRUCTION TO FOLLOW UP WITH MANDO GARCIA AND . - Discharge Plan Disposition: 01 HOME, SELF-CARE Condition: Stable - Follow up/Referrals Follow up/Referrals: LEDY GARCIA [Nurse Practitioner] - 11/06/16 2:00 pm YOLY CHAVEZ [STAFF PHYSICIAN] - 10/31/16 2:30 pm - Instructions Instructions: Epilepsy, [id number] Additional Instructions: ACTIVITY TOLERATED. DIET TOLERATED. FOLLOW UP WITH TOMORROW. Forms: Patient Portal
[2016-10-30] MEDS ORDERED: NEURONTIN CAP 100 MG PO SCH (21:00)
[2016-10-30] MEDS ORDERED: DILANTIN CAP 100 MG EXT REL PO SCH (21:00)
== END 2016-10-30 12:45 | disposition home or self-care (01) ==
LOC: ER 21:27 → ICU 10-30 00:06
PROVIDERS: ADMIT Internal Medicine; ATTEND Internal Medicine
DX: G40.802 Other epilepsy, not intractable, without status epilepticus (principal); F41.8 Other specified anxiety disorders; E87.6 Hypokalemia; Z79.899 Other long term (current) drug therapy
CPT/HCPCS: 36415; 80053; 80185; 83735; 84132; 85025; 95819; 96365; 99284; A4222; S0028; G0378